=== PATIENT | female | born 1985 | race Caucasian/White ===

== ENCOUNTER 2021-09-29 17:30 | Outpatient (CLI) | payer BC | END 2021-09-29 17:31 | disposition home or self-care (01) | LOC: SLEEPLAB 17:30 | PROVIDERS: ATTEND Family Medicine | DX: G47.33 Obstructive sleep apnea (adult) (pediatric) (principal); R53.83 Other fatigue; R09.89 Other specified symptoms and signs involving the circulatory and respiratory systems; R06.83 Snoring; F90.9 Attention-deficit hyperactivity disorder, unspecified type; G47.00 Insomnia, unspecified; G47.10 Hypersomnia, unspecified | CPT/HCPCS: 95800 ==

== ENCOUNTER 2021-10-28 10:04 | Observation (INO) | payer BC ==
[2021-10-28] MEDS ORDERED: Hyoscyamine Sulfate SL 0.125 mg Tablet SL PRN (12:54)
[2021-10-28] MEDS ORDERED: Ondansetron PF 4 MG/2 ML Vial IVP PRN (12:54)
[2021-10-28] MEDS ORDERED: Morphine 4 MG/ML VIAL SLOW IVP PRN (12:54)
[2021-10-28] MEDS ORDERED: Oxybutynin 5 MG TAB PO PRN (12:54)
[2021-10-28] MEDS ORDERED: Zolpidem Tartrate 5 MG TAB PO PRN (12:54)
[2021-10-28] MEDS ORDERED: HYDROcodone/Acetaminophen 5/325 mg Tablet PO PRN (12:54)
[2021-10-28] MEDS ORDERED: diphenhydrAMINE 50 MG/ML VIAL IVP PRN (12:54)
[2021-10-28] MEDS ORDERED: cefTRIAXone\\ROCEPHIN 1 GM in Sodium Chloride 0.9% 100 ML IVPB SCH ×2 (14:00→20:00)
[2021-10-28] MEDS ORDERED: Iopamidol 15 ML ONE (14:00)
[2021-10-28] MEDS ORDERED: HYDROmorphone 0.5 MG/0.5 ML SYRINGE ONE (14:02)
[2021-10-28] MEDS ORDERED: Fentanyl 100 MCG/2 ML VIAL ONE (14:02)
[2021-10-28] MEDS ORDERED: Midazolam HCl 2 mg/2 ml Vial ONE (14:02)
[2021-10-28 14:09] LABS: #Lymphocytes 1.3 thou/uL (1.20-3.40); #Monocytes 0.6 thou/uL (0.11-0.59); #Neutrophils 2.5 thou/uL (1.40-6.50); %Basophils 0.9 % (0.0-1.0); %Monocytes 12.7 % (0.0-10.0); %Neutrophils 56.5 % (42.0-75.0); Mean Corpuscular HGB CONC 31.6 g/dL (32.0-36.0); Mean Corpuscular Hemoglobin 24.8 pg (27.0-31.0); Mean Corpuscular Volume 78.4 fL (78.0-98.0); Mean Platelet Volume 10.8 fL (7.4-10.4); Platelet Count 151 thou/uL (130-400); RBC Distribution Width 15.1 % (11.5-14.5); Red Blood Cell (RBC) Count 4.05 mill/uL (4.20-5.40); White Blood Cell (WBC) Count 4.4 thou/uL (4.8-10.8)
[2021-10-28] MEDS ORDERED: Levofloxacin 500 mg/D5W 100 ml Premix Bag ONE (14:10)
[2021-10-28 14:27] LABS: Anion Gap 13 mmol/L (10-20); BUN (Urea Nitrogen) 8 mg/dL (7.0-18.7); Calc. Creatinine Clearance 0 mL/min (70-130); Calcium 9.2 mg/dL (7.8-10.44); Carbon Dioxide 25 mmol/L (22-29); Chloride 106 mmol/L (98-107); Estimated GFR 81; Glucose 84 mg/dL (70-105); Potassium 4.2 mmol/L (3.5-5.1); Sodium 140 mmol/L (136-145)
[2021-10-28] MEDS ORDERED: Lidocaine 1% PF 5 ML VIAL ONE (14:30)
[2021-10-28] MEDS ORDERED: PROPOFOL 200 MG/20 ML VIAL ONE (14:30)
[2021-10-28] MEDS ORDERED: Ketorolac Tromethamine 30 MG/ML VIAL ONE (14:30)
[2021-10-28] MEDS ORDERED: Metoclopramide HCl 10 MG/2 ML VIAL ONE (14:30)
[2021-10-28] MEDS ORDERED: Ondansetron PF 4 MG/2 ML Vial ONE (14:30)
[2021-10-28] MEDS ORDERED: ePHEDrine 50 MG/ML VIAL ONE (14:30)
[2021-10-28] MEDS ORDERED: Dexamethasone 20 MG/5 ML VIAL ONE (14:30)
[2021-10-28] MEDS ORDERED: Meperidine HCl/PF 25 MG/ML VIAL SLOW IVP PRN (15:01)
[2021-10-28] MEDS ORDERED: HYDROmorphone 2 MG/ML VIAL SLOW IVP PRN (15:01)
[2021-10-28] MEDS ORDERED: Ondansetron HCl/PF 4 MG/2 ML Vial IVP PRN (15:01)
[2021-10-28] MEDS ORDERED: Promethazine HCl 25 MG/ML VIAL IM PRN (15:01)
[2021-10-28] MEDS ORDERED: Morphine Sulfate 2 MG/ML SYRINGE SLOW IVP PRN (15:01)
[2021-10-28] MEDS ORDERED: Promethazine HCl 25 MG/ML VIAL IVPB PRN (15:01)
[2021-10-28] MEDS: Sodium Chloride 0.9% 1,000 ML IV SCH ×2 (17:52→23:07)
[2021-10-28] MEDS: Heparin 5,000 UNITS/ML VIAL SC SCH ×2 (17:52→22:15)
[2021-10-28 20:05] VITALS: BMI 32.5
[2021-10-28] MEDS: Docusate 100 MG CAP PO SCH (20:15)
[2021-10-28] MEDS: Famotidine/PF 20 mg/2ml Vial SLOW IVP SCH (20:15)
[2021-10-29] MEDS: Heparin 5,000 UNITS/ML VIAL SC SCH (05:24)
[2021-10-29 07:23] VITALS: BP 132/84; TEMP 98.5
[2021-10-29] MEDS: Docusate 100 MG CAP PO SCH (08:51)
[2021-10-29] MEDS: Famotidine/PF 20 mg/2ml Vial SLOW IVP SCH (08:51)
[2021-10-29] MEDS: Sodium Chloride 0.9% 1,000 ML IV SCH (08:59)
[2021-10-29] MEDS ORDERED: Tamsulosin HCl 0.4 MG CAP PO SCH (09:00)
== END 2021-10-29 10:41 | disposition home or self-care (01) ==
LOC: T4-A 10:44 → SURG A 17:49
PROVIDERS: ADMIT Urology; ATTEND Urology
PROC: 0T768DZ Dilation of Right Ureter with Intraluminal Device, Via Natural or Artificial Opening Endoscopic (ICD-10-PCS; principal; 2021-10-29)
DX: N13.30 Unspecified hydronephrosis (principal)
CPT/HCPCS: 74420; 80048; 85025; 87086; 87811; 96374; 96375; 96376; C2617; G0378; J0696; J1100; J1170; J1644; J1885; J1956; J2250; J2405; J2704; J2765; J3010; J3490; J7050; Q9967; S0028

== ENCOUNTER 2021-11-25 19:30 | Outpatient (CLI) | payer BC | END 2021-11-25 19:31 | disposition home or self-care (01) | LOC: SLEEPLAB 19:30 | PROVIDERS: ATTEND Family Medicine | DX: G47.33 Obstructive sleep apnea (adult) (pediatric) (principal); R53.83 Other fatigue; R09.89 Other specified symptoms and signs involving the circulatory and respiratory systems; R06.83 Snoring; G47.00 Insomnia, unspecified; G47.10 Hypersomnia, unspecified | CPT/HCPCS: 95810 ==